=== PATIENT | female | born 2005 | race Caucasian/White ===

== ENCOUNTER 2024-07-22 12:02 | Emergency (ER) | payer MEDICAID ==
[~2024-07-22] VITALS: Ht 154.9 cm; Wt 47.3 kg
[2024-07-22 12:05] VITALS: TEMP 97.7
[2024-07-22 13:07] LABS: BASOPHILS % (AUTO) 0.8 % (0.0-2.0); EOSINOPHILS % (AUTO) 1.6 % (1.0-6.0); HEMATOCRIT 40.9 % (36-46); LYMPHOCYTES # (AUTO) 1.5 K/uL (1.0-4.8); LYMPHOCYTES % (AUTO) 32.2 % (22.0-44.0); MEAN CORPUSCULAR HEMOGLOBIN 31.7 pg (26.0-34.0); MEAN CORPUSCULAR HGB CONC 34.3 G/dL (31.0-37.0); MEAN CORPUSCULAR VOLUME 92 fL (80-100); MONOCYTES # (AUTO) 0.4 K/uL (0.1-1.0); MONOCYTES % (AUTO) 8.4 % (2.0-9.0); NEUTROPHILS # (AUTO) 2.6 K/uL (1.8-7.7); PLATELET COUNT (AUTO) 239 K/uL (150-450); RED BLOOD CELL COUNT(AUTO) 4.43 MIL/uL (4.00-5.20); RED CELL DISTRIBUTION WIDTH 12.5 % (11.5-14.5); WHITE BLOOD COUNT (AUTO) 4.6 K/uL (4.5-11.0)
[2024-07-22 13:14] LABS: ANION GAP 6 mmol/L (8-16); CALCIUM, TOTAL 8.8 mg/dL (8.8-10.5); CARBON DIOXIDE 29 mmol/L (22-29); CHLORIDE 104 mmol/L (98-107); CREATININE 0.63 mg/dL (0.60-1.30); GLOMERULAR FILTR. RATE CALC > 60 mL/min (>60); GLUCOSE,RANDOM 65 mg/dL (70-110); SODIUM SERUM 139 mmol/L (136-145); UREA NITROGEN, BLOOD 12 mg/dL (7-18)
[2024-07-22 13:25] LABS: TROPONIN I-HIGH SENSITIVITY Less Than 4 ng/L (<51)
[2024-07-22 13:26] LABS: B-TYPE NATRIURETIC PEPTIDE < 5 pg/mL (0-100)
[2024-07-22 15:00] VITALS: BP 102/66; PULSE 81; RESP 16; O2SAT 99
== END 2024-07-22 15:10 | disposition home or self-care (01) ==
LOC: EMS 12:12
DX: R06.09 Other forms of dyspnea (principal); E16.2 Hypoglycemia, unspecified; R06.02 Shortness of breath; R07.9 Chest pain, unspecified; R42 Dizziness and giddiness; F12.90 Cannabis use, unspecified, uncomplicated
CPT/HCPCS: 71045; 80048; 83735; 83880; 84484; 84703; 85025; 93005; 99285; 36415-L1; 36415-TC

== ENCOUNTER 2024-11-25 18:17 | Emergency (ER) | payer OTHER ==
[~2024-11-25] VITALS: Ht 152.4 cm; Wt 45.5 kg
[2024-11-25] MEDS: SODIUM CHLORIDE 0.9% 250 ML IRRIG SOLUTION BOTTLE IRRIG ONE (18:45)
[2024-11-25] MEDS: BACITRACIN 0.9 GM PACKET OINTMENT TP ONE (18:54)
[2024-11-25] MEDS: LIDOCAINE 1% 10 ML VIAL ID ONE (18:56)
[2024-11-25] MEDS ORDERED: CEPH-558 PO (19:16)
[2024-11-25 19:22] VITALS: BP 115/65; PULSE 76; RESP 18; TEMP 97.3; O2SAT 99
== END 2024-11-25 19:57 | disposition home or self-care (01) ==
LOC: EMS 18:17
DX: S61.412A Laceration without foreign body of left hand, initial encounter (principal); F32.A Depression, unspecified; F12.90 Cannabis use, unspecified, uncomplicated; W26.0XXA Contact with knife, initial encounter; Y93.89 Activity, other specified; Y92.89 Other specified places as the place of occurrence of the external cause; Y99.8 Other external cause status
CPT/HCPCS: 99283; 12001; J3490

== ENCOUNTER 2024-11-29 12:29 | Emergency (ER) | payer OTHER ==
[~2024-11-29] VITALS: Ht 154.9 cm; Wt 44.5 kg
[~2024-11-29 12:29] MED LIST: CEPH-558 PO
[2024-11-29 12:37] VITALS: BP 95/65; PULSE 63; RESP 16; TEMP 98.1; O2SAT 100
[2024-11-29] MEDS: BACITRACIN 0.9 GM PACKET OINTMENT TP ONE (12:49)
== END 2024-11-29 13:12 | disposition home or self-care (01) ==
LOC: EMS 12:29
DX: S61.411D Laceration without foreign body of right hand, subsequent encounter (principal); F32.A Depression, unspecified; F12.90 Cannabis use, unspecified, uncomplicated; Z98.890 Other specified postprocedural states; Z79.899 Other long term (current) drug therapy; X58.XXXA Exposure to other specified factors, initial encounter
CPT/HCPCS: 99282; Z7502; Z7610

== ENCOUNTER 2024-12-04 12:09 | Emergency (ER) | payer OTHER ==
[~2024-12-04] VITALS: Ht 154.9 cm; Wt 48.2 kg
[2024-12-04 12:16] VITALS: BP 112/75; PULSE 68; RESP 18; TEMP 98.1; O2SAT 100
[2024-12-04] MEDS ORDERED: CEPH-558 PO (14:12)
== END 2024-12-04 14:14 | disposition home or self-care (01) ==
LOC: EMS 12:09
DX: S61.412D Laceration without foreign body of left hand, subsequent encounter (principal); F32.A Depression, unspecified; F12.90 Cannabis use, unspecified, uncomplicated; Z98.890 Other specified postprocedural states; Z79.899 Other long term (current) drug therapy; X58.XXXD Exposure to other specified factors, subsequent encounter
CPT/HCPCS: 99283; Z7502